=== PATIENT | female | born 1990 | race Caucasian/White ===

== ENCOUNTER 2018-11-14 23:43 | Emergency (ER) | payer OTHER ==
[~2018-11-14] VITALS: Ht 165.1 cm; Wt 106.5 kg
[~2018-11-14 23:43] MED LIST: IBUP-1542 PO
[2018-11-14 23:46] VITALS: Ht 165.1 cm; Wt 106.5 kg
[2018-11-15] MEDS ORDERED: IBUPROFEN 600 MG TAB PO ONE (01:00)
[2018-11-15 02:24] VITALS: BP 121/65; PULSE 69; RESP 18
--- NOTE | 2018-11-15 02:28 | ERD ---
ER Documentation Chief Complaint Chief Complaint CP AND DYSPNEA X 2 DAYS. HPI Patient is a 28-year-old female, no past medical history, presents to the ER for chest pain as well as shortness of breath for the last 2 to 3 days. Patient states the pain is localized to her anterior chest. She denies any radiation of the pain. Patient states the pain comes and goes. Patient states the pain lasts for about an hour and then goes away. Patient occasionally does have palpitations which last 2 to 3 minutes. Patient has no palpitations at this time. Patient denies any left upper extremity pain, neck pain, back pain, abdominal pain, jaw pain, nausea, vomiting, fevers, chills, cough or LOC. Patient denies any recent travel, history of DVT/PE, OCP use, unilateral leg swelling. ROS All systems reviewed and are negative except as per history of present illness. Medications Home Meds Active Scripts Ibuprofen* (Motrin*) 600 Mg Tab, 600 MG PO Q6, #30 TAB Prov:NOHEMI SAMUEL PA-C 11/15/18 Allergies Allergies: Coded Allergies: No Known Allergy (Unverified , 11/15/18) PMhx/Soc Medical and Surgical Hx: pt denies Medical Hx, pt denies Surgical Hx Hx Alcohol Use: No Hx Substance Use: No Hx Tobacco Use: No FmHx Family History: No diabetes Physical Exam Vitals Vital Signs Date Temp Pulse Resp B/P (MAP) Pulse Ox O2 O2 Flow FiO2 Time Delivery Rate 11/15/18 98.1 69 18 121/65 99 02:24 (83) 11/14/18 99.3 98 20 143/63 99 23:46 (89) Physical Exam GENERAL: Well-developed, well-nourished female. Appears in no acute distress. Speaking in full sentences. HEAD: Normocephalic, atraumatic. EYES: Pupils are equally reactive bilaterally. EOMs grossly intact. No conjunctival erythema. ENT: Moist mucous membranes. No uvula deviation. No kissing tonsils. NECK: Supple. No meningismus. Normal range of motion of the neck. LUNG: Clear to auscultation bilaterally. No rhonchi, wheezing, rales or coarse breath sounds. HEART: Regular rate and rhythm. No murmurs, rubs or gallops. Equal pulses in bilateral upper extremities. CHEST WALL: Tender to palpation of the anterior chest wall. Pain is reproducible. ABDOMEN: No scars, ecchymosis or rashes noted. Soft, nontender, and nondistended. Positive bowel sounds in all four quadrants. No rebound tenderness, no guarding. (-) McBurney's point tenderness. No CVA tenderness. EXTREMITIES: Equal pulses bilaterally. No peripheral clubbing, cyanosis or edema. No unilateral leg swelling. NEUROLOGIC: Alert and oriented. Moving all four extremities without any difficulty. Normal speech. Steady gait. SKIN: Normal color. Warm and dry. No rashes or lesions. Result Diagram: 11/15/189911/15/1899 Results 24 hrs Laboratory Tests Test 11/15/18 01:00 White Blood Count 8.9 10^3/ul Red Blood Count 4.31 10^6/ul Hemoglobin 12.7 g/dl Hematocrit 39.7 % Mean Corpuscular Volume 92.1 fl Mean Corpuscular Hemoglobin 29.5 pg Mean Corpuscular Hemoglobin Concent 32.0 g/dl Red Cell Distribution Width 13.2 % Platelet Count 411 10^3/UL Mean Platelet Volume 9.4 fl Immature Granulocytes % 0.200 % Neutrophils % 75.4 % Lymphocytes % 16.9 % Monocytes % 6.2 % Eosinophils % 0.8 % Basophils % 0.5 % Nucleated Red Blood Cells % 0.0 /100WBC Immature Granulocytes # 0.020 10^3/ul Neutrophils # 6.7 10^3/ul Lymphocytes # 1.5 10^3/ul Monocytes # 0.6 10^3/ul Eosinophils # 0.1 10^3/ul Basophils # 0.0 10^3/ul Nucleated Red Blood Cells # 0.0 10^3/ul Sodium Level 143 mmol/L Potassium Level 4.4 mmol/L Chloride Level 104 mmol/L Carbon Dioxide Level 29 mmol/L Anion Gap 10 Blood Urea Nitrogen 12 mg/dl Creatinine 0.78 mg/dl Est Glomerular Filtrat Rate mL/min > 60 mL/min Glucose Level 117 mg/dl Calcium Level 9.6 mg/dl Troponin I < 0.012 ng/ml Current Medications Medications Dose Sig/Lise Start Time Status Last (Trade) Ordered Route PRN Stop Time Admin Dose Reason Admin Ibuprofen 600 mg ONCE ONCE 11/15/18 DC 11/15/18 (Motrin) PO 01:00 01:04 11/15/18 01:01 Procedures/MDM ED COURSE: The patient was stable throughout ED course. I kept the patient and/or family informed of laboratory and diagnostic imaging results throughout the ED course. EKG: Read by [], attending physician. EKG shows normal sinus rhythm at a rate of [address] elevations or T wave changes were noted. DIAGNOSTIC IMAGING: Read by radiologist. Patient: SOTERO CLARK : 1990 Age: 28 Sex: F MR #: [id number] DOS: 11/15/18 0047 Ordering MD: NOHEMI SAMUEL PA-C Location: [facility] Room/Bed: PROCEDURE: Chest. CLINICAL INDICATION: Chest pain. TECHNIQUE: Single frontal view of the chest was obtained. COMPARISON: None. FINDINGS: The cardiac silhouette is within normal limits. The aortic arch is unremarkable. There is no focal consolidation, vascular congestion or pleural effusion. There is no pneumothorax. IMPRESSION: No evidence for active cardiopulmonary disease. .Jesse Wells MD, MD Date Time Electronically viewed and signed by .Jesse Wells MD, on 11/15/2018 01:51 .T/ CC: NOHEMI SAMUEL PA-C [phone] PROCEDURES: None. MEDICATIONS GIVEN: Ibuprofen Patient tolerated medication well with no adverse reactions. Patient reported improvement in pain. MEDICAL DECISION MAKING: This is a 28-year-old female, no past medical history, presents the ER for concerns of chest pain as well as shortness of breath for the last 2 to 3 days.. Patient denied any leg swelling, recent surgeries, travel, exogenous estrogen use. Vital signs were reviewed. Patient was afebrile. Patient was not hypoxic. Cardiac exam was normal. Lung exam was normal. Pain was reproduced with palpation. Blood work was obtained. CBC showed no evidence of systemic infecti on or anemia. CMP showed no severe electrolyte abnormalities, acidosis, alkalosis, renal injury or liver failure. Troponin was within normal limits. EKG was within normal limits. Low suspicion for acute coronary syndrome, arrhythmia or pericarditis. CXR was within normal limits. Low suspicion for pneumothorax, pneumonia or pleural effusion. PERC score 0. Low suspicion for PE. PRESCRIPTIONS: Ibuprofen DISCHARGE: At this time, patient is stable for discharge and outpatient management. I have instructed the patient to follow-up with his/her primary care physician in 1-2 days. If symptoms persist, patient may need to see a specialist for further examinations and testing. I have instructed the patient to promptly return to the ER at any time for any new or worsening symptoms including increased increased pain, fever, nausea, vomiting, numbness, weakness, diaphoresis or LOC. The patient and/or family expressed understanding of and agreement with this plan. All questions were answered. Home care instructions were provided. Disclaimer: Inadvertent spelling and grammatical errors are likely due to EHR/dictation software use and do not reflect on the overall quality of patient care. Also, please note that the electronic time recorded on this note does not necessarily reflect the actual time of the patient encounter Departure Diagnosis: Primary Impression: Chest wall pain Condition: Fair Patient Instructions: Chest Wall Pain, Costochondritis Referrals: ROSA RAMÍREZ,EZRA AREVALO MD,YONI KNOWLES,MARINO NGUYEN MD,NANI BLOUNT,ANDRES MOCK,MI MORENO MD,LIVIER Boswell,Prince HERRERA,CEE VO MD [facility] YOU HAVE RECEIVED A MEDICAL SCREENING EXAM AND THE RESULTS INDICATE THAT YOU DO NOT HAVE A CONDITION THAT REQUIRES URGENT TREATMENT IN THE EMERGENCY DEPARTMENT. FURTHER EVALUATION AND TREATMENT OF YOUR CONDITION CAN WAIT UNTIL YOU ARE SEEN IN YOUR DOCTORS OFFICE WITHIN THE NEXT 1-2 DAYS. IT IS YOUR RESPONSIBILITY TO MAKE AN APPOINTMENT FOR FOL-UP CARE. IF YOU HAVE A PRIMARY DOCTOR --you should call your primary doctor and schedule an appointment IF YOU DO NOT HAVE A PRIMARY DOCTOR YOU CAN CALL OUR PHYSICIAN REFERRAL HOTLINE AT IF YOU CAN NOT AFFORD TO SEE A PHYSICIAN YOU CAN CHOSE FROM THE FOLLOWING [facility] [address] [facility]. [facility] [place] [address] [facility] [address] [facility] [address] [facility] [address] [facility] [facility]. [address] [facility]. [facility] YOU HAVE RECEIVED A MEDICAL SCREENING EXAM AND THE RESULTS INDICATE THAT YOU DO NOT HAVE A CONDITION THAT REQUIRES URGENT TREATMENT IN THE EMERGENCY DEPARTMENT. FURTHER EVALUATION AND TREATMENT OF YOUR CONDITION CAN WAIT UNTIL YOU ARE SEEN IN YOUR DOCTORS OFFICE WITHIN THE NEXT 1-2 DAYS. IT IS YOUR RESPONSIBILITY TO MAKE AN APPOINTMENT FOR FOLOW-UP CARE. IF YOU HAVE A PRIMARY DOCTOR --you should call your primary doctor and schedule and appointment IF YOU DO NOT HAVE A PRIMARY DOCTOR YOU CAN CALL OUR PHYSICIAN REFERRAL HOTLINE AT . IF YOU CAN NOT AFFORD TO SEE A PHYSICIAN YOU CAN CHOSE FROM THE FOLLOWING [facility] INSTITUTIONS: [facility] [address] [place] [address] [facility] [address] [place] [address] [facility] [address] [place] [address] Additional Instructions: Follow-up with a chauffeur airport limousine on an outpatient basis for further work-up and management of symptoms. Return the ER immediately for any new or worsening symptoms. Call your primary care doctor TOMORROW for an appointment during the next 1-2 days.See the doctor sooner or return here if your condition worsens before your appointment time. NOHEMI SAMUEL PA-C Nov 15, 2018 02:28
== END 2018-11-15 02:25 | disposition home or self-care (01) ==
LOC: FTE 23:43
DX: R07.89 Other chest pain (principal)
CPT/HCPCS: 36415; 71045; 80048; 84484; 85025; 93005